=== PATIENT | female | born 1985 | race Caucasian/White ===

== ENCOUNTER 2017-01-30 22:20 | Emergency (ER) | payer OTHER ==
[~2017-01-30] VITALS: Ht 172.7 cm; Wt 68.0 kg
[2017-01-31] MEDS ORDERED: DIPHENHYDRAMINE 50 MG/ML VIAL IVP ONE
[2017-01-31] MEDS ORDERED: METOCLOPRAMIDE HCL 10 MG/2 ML VIAL. IV ONE
[2017-01-31] MEDS ORDERED: IV NORMAL SALINE 1000ML BAG 1,000 ML IV ONE
[2017-01-31 01:00] VITALS: BP 114/67
--- NOTE | 2017-01-31 01:03 | PHYS DOC ---
Past Medical History Past Medical History: CVA, Migraines Past Surgical History: No Surgical History Alcohol Use: None Drug Use: Marijuana Adult General Chief Complaint Chief Complaint: HEADACHE HPI HPI 31-year-old female with a history of migraines presents emergency Department with "migraine". She reports having a sharp pain on the left side of her face radiates the occiput. It is moderate to severe. Her pain is intermittent and present since approximately 1:00 this afternoon. She is tried Excedrin without any relief. She denies numbness weakness or tingling. Review of systems is negative for vision changes focal weakness chest pain or shortness of breath. All other review of systems is negative unless otherwise noted in history of present illness. Review of Systems Review of Systems SEE ABOVE. Current Medications Current Medications Current Medications Medications (Trade) Dose Ordered Sig/Ling Start Time Stop Time Status Last Admin Dose Admin Diphenhydramine HCl 50 mg 50 mg 1X ONCE 01/31/17 00:00 01/31/17 00:01 DC 01/31/17 00:07 50 MG Metoclopramide HCl (Reglan) 20 mg 1X ONCE 01/31/17 00:00 01/31/17 00:01 DC 01/31/17 00:07 20 MG Sodium Chloride (Iv Sodium Chloride 0.9% 1000ml Bag) 1,000 ml @ 1,000 mls/hr 1X ONCE 01/31/17 00:00 01/31/17 00:59 01/31/17 00:06 1,000 MLS/HR Allergies Allergies Allergies Coded Allergies Type Severity Reaction Last Updated Verified promethazine Allergy Intermediate 01/30/17 Yes Physical Exam Physical Exam Constitutional: Well developed, well nourished, no acute distress, non-toxic appearance. HENT: Normocephalic, atraumatic, bilateral external ears normal, oropharynx moist, no oral exudates, nose normal. Eyes: PERRLA, EOMI, conjunctiva normal, no discharge. [] Neck: Normal range of motion, no tenderness, supple, no stridor. Cardiovascular:Heart rate regular rhythm, no murmur Lungs & Thorax: Bilateral breath sounds clear to auscultation [] Abdomen: Bowel sounds normal, soft, no tenderness, no masses, no pulsatile masses. [] Skin: Warm, dry, no erythema, no rash. Back: No tenderness, no CVA tenderness. Extremities: No tenderness, no cyanosis, no clubbing, ROM intact, no edema. [] Neurologic: Neuro exam: Mental status: Awake oriented and alert x3 Cranial nerves: Extraocular movements intact, eyebrows rodolfo bilaterally smile symmetric, uvula elevation, shoulder shrug intact, tongue protrusion normal Sensation: equal and normal in all extremities Strength: 5/5 in upper and lower extremities bilaterally Psychologic: Affect normal, judgement normal, mood normal. Current Patient Data Vital Signs Vital Signs Date Time Temp Pulse Resp B/P Pulse Ox O2 Delivery O2 Flow Rate FiO2 01/30/17 23:12 97.6 83 20 141/91 97 Room Air 97.6 EKG EKG [] Radiology/Procedures Radiology/Procedures [] Course & Med Decision Making Course & Med Decision Making Pertinent Labs and Imaging studies reviewed. (See chart for details) [] 31-year-old female presenting to the emergency department with headache consistent with previous migraines. Vital signs unremarkable. Pertinent physical exam findings show normal neurologic exam. IV fluids Reglan and Benadryl given which improved her symptoms significantly. On reevaluation her symptoms had improved and she was up slightly discharged home to follow up with her primary care physician for chronic prevention and therapy of migraine headaches. Dragon Disclaimer Dragon Disclaimer This electronic medical record was generated, in whole or in part, using a voice recognition dictation system. Departure Departure Impression: Primary Impression: Migraine headache Disposition: 01 HOME, SELF-CARE Condition: STABLE Referrals: NO PCP (PCP) JOSSUE GIRARD MD Patient Instructions: Migraine Headache Additional Instructions: Thank you for allowing us to participate in your care today. Followup with your primary care physician in 3 days if your symptoms do not improve. If you do not have a primary care provider you can ask for a list of our primary care providers. Return to the emergency department you have any new or concerning findings. This should be evaluated by the primary care physician and any necessary consulting services for continued management within a few days after discharge. Return to emergency room if you have any new or concerning symptoms including but not limited to fever, chills, nausea, vomiting, intractable pain, any new rashes, chest pain, shortness of air, uncontrolled bleeding, difficulty breathing, and/or vision loss. DOLLY PERAZA MD Jan 31, 2017 01:03
== END 2017-01-31 01:28 | disposition home or self-care (01) ==
LOC: ER 22:20
DX: G43.909 Migraine, unspecified, not intractable, without status migrainosus (principal); F12.10 Cannabis abuse, uncomplicated; Z86.73 Personal history of transient ischemic attack (TIA), and cerebral infarction without residual deficits; Z88.8 Allergy status to other drugs, medicaments and biological substances
CPT/HCPCS: 96361; 96374; 96375; 99284; J1200; J2765; J7030